=== PATIENT | male | born 1960 | race Caucasian/White ===

== ENCOUNTER → 2020-07-17 08:56 | Outpatient (CLI) | payer OTHER | END | disposition home or self-care (01) | LOC: D.HCCARDIO 08:56 | PROVIDERS: ATTEND Internal Medicine Cardiovascular Disease | DX: I20.9 Angina pectoris, unspecified (principal) ==

== ENCOUNTER 2021-02-11 13:59 | Inpatient (IN) | payer OTHER ==
[~2021-02-11] VITALS: Ht 182.9 cm; Wt 163.5 kg
--- NOTE | ~2021-02-11 | EC ---
PATIENT:ALVIN ROCHA DATE OF SERVICE: 02/11/21 SEX: M MEDICAL RECORD: [id number] DATE OF : 56 LOCATION:D.M2 D.210 AGE OF PATIENT: 60 ADMISSION DATE: 02/11/21 REFERRING PHYSICIAN: INTERPRETING PHYSICIAN: DANIELITO GUZMAN MD ECHOCARDIOGRAM REPORT ECHO CHARGES 4 ECHO COMPLETE Date: 02/12/21 CLINICAL DIAGNOSIS: LYMPHEDEMA ECHOCARDIOGRAPHIC MEASUREMENTS (adult normal given) AC root (d.<3.7cm) 3.7 cm LV Septum d (<1.2 cm> 1.4 cm Valve Excursion 1.5 cm LV Septum (systole) 1.7 cm Left Atria (s.<4.0cm> 5.2 cm LVPW d(<1.2cm) 1.5 cm RV (d.<2.3cm) 4.3 cm LVPW (sytole) 1.5 cm LV diastole(<5.6CM) 5.1 cm MV E-F(>70mm/sec) cm LV systole 3.7 cm LVOT Diameter 2.2 cm MV exc.(>10mm) cm Est.ejection fraction (50-75%) 50 % DOPPLER: LVIT cm/sec A 92 cm/sec E 60 cm/sec LA cm/sec RVSP 37 mmHg LVOT 175 cm/sec AOP1/2T m/s Asc. Ao 200 cm/sec RVOT 95 cm/sec RA 4.3 cm/sec PA 119 cm/sec AV Gradient Peak 16 mmHg AV Mean 8 mmHg AV Area cm MV Gradient Peak mmHg MV Mean mmHg MV Area cm COMMENTS: Airline Managerial Supervisor: Dara MILLER Sales And Marketing Agent: 3 Dr. Campos TAPE# Pericardial Effusion N DATE OF SERVICE: Adequate 2D, color flow imaging, spectral Doppler, and M-Mode. No LVH is present. LV internal dimensions are normal. Wall motion normal. EF greater than or equal to 55%. Aortic valve is tricuspid. No evidence of stenosis by Doppler interrogation. Left atrium is dilated at 5.2 cm. Mitral valve shows no prolapse. Trace MR. Right-sided chambers are grossly normal. Trace TR. ECHOCARDIOGRAM REPORT [id number] ALVIN ROCHA TRANSINT:[id number] Voice Confirmation ID: [id number] DOCUMENT ID: [id number] DANIELITO GUZMAN MD CC: [id number] DICTATION DATE: 02/15/21 164 [employer] APPRENTICE: 02/15/21 2253 DIS IN 02/13/21 [facility] [address] [place] [address]
[~2021-02-11 13:59] MED LIST: CATAPRES0.1 MG PO; K-DUR20 MEQ PO; LASIX40 MG PO; METOLAZONE2.5 MG PO; TOPROL XL50 MG PO; TRIBENZOR 40-11 EAC1 PO
[2021-02-11 14:30] LABS: BASOPHILS 0.2 % (0-2); EOSINOPHILS 3.7 % (0-7); HEMATOCRIT 47.6 % (42.0-54.0); HEMOGLOBIN 15.3 g/dL (13.5-17.5); IMMATURE GRANULOCYTES 0.2 % (0-5); LYMPHOCYTE ABS# 1.53 10x3/uL (1.32-3.57); MCH 29.9 pg (26.0-34.0); MCHC 32.1 g/dL (31.0-37.0); MCV 93.2 fL (80.0-100.0); MONOCYTES 10.7 % (2-11); NEUTROPHIL ABS# 6.12 10x3/uL (1.78-5.38); NEUTROPHILS 68.2 % (40-80); PLATELET COUNT 195 10x3/uL (130-400); RBC 5.11 10x6/uL (4.20-6.10); RDW 14.4 % (11.5-14.5)
[2021-02-11] MEDS ORDERED: OXYBUTYNIN CHLOR5 M1 PO (14:37)
[2021-02-11] MEDS ORDERED: DOXYCYCLINE HY100 M2 PO (14:37)
[2021-02-11] MEDS ORDERED: ALDACTONE25 MG PO (14:37)
[2021-02-11 14:39] LABS: CALC OSMOLALITY 269 mosm/kg (275-300); CALCIUM 9.5 mg/dL (8.5-10.1); CARBON DIOXIDE 34.8 mmol/L (21.0-32.0); CHLORIDE - SERUM 98 mmol/L (98-107); CREATININE - SERUM 1.4 mg/dL (0.6-1.3); GLUCOSE 117 mg/dL (74-106); SODIUM 133 mmol/L (136-145); UREA NITROGEN 21 mg/dL (7-18); eGFR NON AFRICAN AMERICAN 54 mL/min (90-120)
[2021-02-11 14:46] LABS: INR 1.07 (0.85-1.17); PROTIME 12.9 SECONDS (11.6-15.0)
[2021-02-11 14:54] LABS: ALBUMIN 3.3 g/dL (3.4-5.0); ALKALINE PHOSPHATASE 79 U/L (30-120); ALT (SGPT) 26 U/L (10-68); BILIRUBIN - TOTAL 0.46 mg/dL (0.2-1.3); CREATINE KINASE 87 UL (21-232); PRO BNP 111 pg/mL (0-125); PROTEIN - SERUM 8.8 g/dL (6.4-8.2); TROPONIN-I < 0.017 ng/mL (0.000-0.060)
--- NOTE | 2021-02-11 17:26 | NUR ---
URINE SPECIMEN TO LAB.
--- NOTE | 2021-02-11 17:30 | NUR ---
REPORT CALLED TO HENRIQUE DIAZ II. ROOM IS NOT CLEAN. WILL CALL.
--- NOTE | 2021-02-11 17:35 | NUR ---
AHA DIET GIVEN.
[2021-02-11 17:38] LABS: BILIRUBIN NEGATIVE (NEGATIVE); KETONE NEGATIVE (NEGATIVE); NITRITE NEGATIVE (NEGATIVE); UROBILINOGEN NORMAL mg/dL (< 2)
--- NOTE | 2021-02-11 18:36 | NUR ---
PT ARRIVED AT THIS TIME VIA STRETCHER, PT AMBULATED TO BED WITHOUT ASSISTANCE. O2 IN PLACE, RR EVEN NON LABORED. ALL BELONGINGS WITH PT. PT AWAKE AND ALERT. ORIENTED TO ROOM, CALL LIGHT, TV CONTROL. NO QUESTIONS VOICED. CLWR
[2021-02-11] MEDS ORDERED: FUROSEMIDE40 MG PO (19:05)
--- NOTE | 2021-02-11 19:30 | NUR ---
PT IN BED, AAO X 4, RESP EVEN AND UNLABORED, NO DISTRESS NOTED, CL IN REACH, SR UP X 2.
[2021-02-12] VITALS (8 sets, daily range): BP systolic 119–155; BP diastolic 73–101; Ht 182.9 cm; Wt 163.5 kg
[2021-02-12 06:11] LABS: BASOPHILS 0.3 % (0-2); EOSINOPHILS 4.5 % (0-7); HEMATOCRIT 51.1 % (42.0-54.0); HEMOGLOBIN 16.1 g/dL (13.5-17.5); IMMATURE GRANULOCYTES 0.1 % (0-5); LYMPHOCYTE ABS# 1.32 10x3/uL (1.32-3.57); LYMPHOCYTES 19.3 % (15-50); MCH 30.1 pg (26.0-34.0); MCHC 31.5 g/dL (31.0-37.0); MEAN PLATELET VOLUME 10.9 fL (7.4-10.4); MONOCYTES 9.8 % (2-11); NEUTROPHIL ABS# 4.52 10x3/uL (1.78-5.38); PLATELET COUNT 213 10x3/uL (130-400); RBC 5.35 10x6/uL (4.20-6.10); RDW 14.9 % (11.5-14.5); WBC 6.9 10x3/uL (4.8-10.8)
[2021-02-12 06:21] LABS: MCV 95.5 fL (80.0-100.0)
[2021-02-12 06:41] LABS: ANION GAP 9.7 mmol/L (8-16); CALCIUM 9.9 mg/dL (8.5-10.1); CREATININE - SERUM 1.5 mg/dL (0.6-1.3); MAGNESIUM - SERUM 2.5 mg/dL (1.8-2.4); PHOSPHOROUS 5.8 mg/dL (2.5-4.9)
[2021-02-12 06:56] LABS: POTASSIUM - SERUM 4.7 mmol/L (3.5-5.1)
--- NOTE | 2021-02-12 07:41 | NUR ---
AM ROUNDING DONE WITH PATIENT SITTING UP IN CHAIR. OBESE ADBDOMINAL AREA. PITTING EDEMA SEEN TO BILATERAL LOWER LEGS. ON HEART MONITOR AND LOVENOX. ON 2L PER NC, THIS IS NOT A HOME DOSE. RIGHT AC IS SEEN WITH SALINE LOCK, ORANGE SWAB CAP IS IN PLACE.
--- NOTE | 2021-02-12 07:53 | HP ---
PATIENT: ALVIN ROCHA MEDICAL RECORD: [id number] ACCOUNT: [id number] LOCATION:[address] : 56 ADMISSION DATE: 02/11/21 PCP: MICHEAL RICK HISTORY AND PHYSICAL EXAMINATION REASON FOR ADMISSION: Increasing bilateral lower extremity edema causing severe pain and shortness of breath. HISTORY OF PRESENT ILLNESS: The patient is a 60-year-old male with history of chronic lymphedema. He sees a physician in [place], [place] who has been trying to work him up on an outpatient basis. He had a negative heart catheterization and normal coronaries by Dr. Campos in July of last year. The patient apparently had pneumonia and was treated in [place] at that time. He has continued to have increasing edema on his feet all the time. He says now it has gotten to the point where he was gaining weight. Feet and legs hurt and he is having difficulty walking. Denies any recent fever. PAST MEDICAL HISTORY: Morbid obesity; chronic lymphedema; cellulitis of lower extremities; community-acquired pneumonia July of 2020; negative heart catheterization November of 2020; essential hypertension; history of DANITZA on CPAP and skin cancers. ALLERGIES: TO SULFA. HOME MEDICATIONS: Metoprolol XL 50 mg daily, potassium K-Dur 20 mEq daily, Tribenzor 40/10/25 one daily, Lasix 40 mg daily, metolazone 2.5 mg t.i.d., doxycycline 100 mg every 12 hours, oxybutynin ER 5 mg at bedtime, Aldactone 25 mg daily. PAST SURGICAL HISTORY: Negative except for some skin cancer he has had removed. FAMILY HISTORY: Parents , had hypertension. SOCIAL HISTORY: Tobacco use, oral. Alcohol for 40 years, beer. States he does not have a problem with it. REVIEW OF SYSTEMS: GENERAL: He has had gradual weight gain. No fever. HEENT: No recent visual change, sinus congestion or sore throat. RESPIRATORY: Has exertional shortness of breath. No cough. No recent hemoptysis. CARDIAC: No exertional chest pain, claudication. Increasing edema as mentioned. ENDOCRINE: Denies polyuria, polydipsia, heat or cold intolerance. NEUROLOGIC: No history of stroke, TIA, vascular headaches. INTEGUMENT: No rash or itching. PSYCHIATRIC: Denies depressed mood. GENITOURINARY: Nocturia once nightly. PHYSICAL EXAMINATION: VITAL SIGNS: Temperature 98.2, pulse 79, respirations 16, blood pressure 165/78 with a sat of 95% on room air. GENERAL: The patient is alert and oriented. HEENT: Normocephalic. Eyes are clear. He has some scars on top of his head from previous skin biopsies. HISTORY AND PHYSICAL [id number] ROCHA,ALVIN NECK: No bruits or masses. CHEST: Distant breath sounds without wheezes or rales. HEART: Regular rate and rhythm without murmur. ABDOMEN: Morbidly obese, nontender. No hernias appreciated. EXTREMITIES: He has brawny lymphedema 4+ to the mid calves bilaterally. He has some mild erythema of the lower extremities, medial below the knees and to the ankles. He has some keratoses on his legs as well. No open wounds were noted. NEUROLOGICAL: Oriented to person, place and time. Cranial nerves were intact. Gait was not tested. No motor deficits noted grossly. DIAGNOSTIC DATA: EKG shows sinus rhythm, rate of 74. Chest x-ray; mild interstitial edema. LABORATORY DATA: CBC is normal. Chemistry; BUN is 18, creatinine is 1.2, glucose is 96. Liver functions are normal. ASSESSMENT: 1. [id number] lymphedema. 2. Gait abnormality. 3. Essential hypertension. 4. Morbid obesity. PLAN: The patient will be admitted. We will discontinue Norvasc due to exacerbating his edema. We will place on IV Lasix, telemetry, potassium replacement as needed. Further workup pending clinical course. TRANSINT:[id number] Voice Confirmation ID: [id number] DOCUMENT ID: [id number] LAILA YANG MD at 0753 CC: [id number] DICTATION DATE: 02/11/21 1721 PHOTOGRAPHIC PROCESS SCREEN MAKER: 02/11/21 1808 ADM IN [place] [id number] [place] [address]
--- NOTE | 2021-02-12 18:22 | NUR ---
SITTING UP IN CHAIR STILL WITH PITTING EDEMA TO FEET. DENIES NEEDS AT THIS TIME.
--- NOTE | 2021-02-12 20:30 | NUR ---
PT IN BED, AAO X 4, RESP EVEN AND UNLABORED, NO DISTRESS NOTED, CL IN REACH, SR UP X 2.
[2021-02-13 05:46] LABS: ANION GAP 7.7 mmol/L (8-16); CALCIUM 9.3 mg/dL (8.5-10.1); CARBON DIOXIDE 35.5 mmol/L (21.0-32.0); CREATININE - SERUM 1.5 mg/dL (0.6-1.3); POTASSIUM - SERUM 4.2 mmol/L (3.5-5.1)
--- NOTE | 2021-02-13 07:29 | NUR ---
REPORT RECEIVED. PATIENT IS AAOX4, SITTING UP IN CHAIR. NO S/S OF DISTRESS OBSERVED, RR EVEN AND UNLABORED ON 2L O2 VIA NC. PIV TO RT AC, SL. 3+ PITTING EDEMA NOTED TO BLE. PROVIDED COFFEE TO PATIENT PER REQUEST. NO FURTHER NEEDS EXPRESSED. CL IN REACH, BED LOCKED AND LOWERED. WILL CPOC.
[2021-02-13 08:35] VITALS: BP 146/80
[2021-02-13] MEDS ORDERED: BUMEX2 MG PO (09:51)
--- NOTE | 2021-02-13 10:21 | NUR ---
PT'S LOCAL PHARMACY CLOSED. RX FOR BUMEX CALLED TO [facility] [address] PER PT REQUEST. SPOKE WITH RAMIREZ, PHARMACIST.
--- NOTE | 2021-02-13 10:46 | NUR ---
DISCHARGE INSTRUCTIONS PROVIDED, D/C PAPERS SIGNED. PIV REMOVED WITH CATH TIP INTACT, BANDAID APPLIED. PATIENT AWAITING TRANSPORTATION.
--- NOTE | 2021-02-13 11:26 | NUR ---
IN ROOM TO HIGH CLIMBER PATIENT. SIGNALING DESIGN ENGINEER ASSISTED PATIENT DOWN TO ER VIA WHEELCHAIR.
== END 2021-02-13 11:27 | disposition home or self-care (01) | DRG 607 ==
LOC: D.ER 13:59 → D.M2 17:18
PROVIDERS: Family Medicine; ADMIT Family Medicine; ATTEND Family Medicine
DX: I89.0 Lymphedema, not elsewhere classified (principal); Z68.43 Body mass index [BMI] 50.0-59.9, adult; E66.01 Morbid (severe) obesity due to excess calories; I10 Essential (primary) hypertension; Z87.01 Personal history of pneumonia (recurrent)